=== PATIENT | female | born 1930 | race Caucasian/White ===

== ENCOUNTER 2017-09-01 19:39 | Outpatient (CLI) | payer MEDICARE, BC | END 2017-09-01 19:40 | disposition home or self-care (01) | LOC: EMS 19:39 | PROVIDERS: ATTEND Surgery | DX: M25.552 Pain in left hip (principal); W18.39XA Other fall on same level, initial encounter; Y92.009 Unspecified place in unspecified non-institutional (private) residence as the place of occurrence of the external cause | CPT/HCPCS: A0425; A0427 ==

== ENCOUNTER 2017-09-01 19:55 | Emergency (ER) | payer MEDICARE, BC ==
--- NOTE | 2017-09-01 20:07 | ED Physician Documentation ---
PD HPI LOWER EXT INJURY - Stated complaint Stated Complaint: GLF/HIP PAIN - History obtained from History obtained from: Patient - History of Present Illness PD HPI LOW EXT INJURY LOCATION: Left, Hip, Knee Type of injury: Fall Where injury occurred: Home Timing - onset: How many hours ago (1) Timing - duration: Hours Timing - details: Abrupt onset Pain level max: 9 Pain level now: 8 Improved by: Rest Worsened by: Moving, Palpating Associated symptoms: Swelling. No: Weakness, Numbness Similar symptoms before: Diagnosis (feels similar to h/o hip dislocation) Recently seen: Not recently seen - Additional information Additional information: lost balance while walking in her house approximately one hour [employer], causing her to fall. She had sudden onset left hip and left knee pain, unable to move the LLE due to pain. Given fentanyl en route with good pain relief Review of Systems Constitutional: reports: Reviewed and negative Eyes: reports: Reviewed and negative Ears: reports: Reviewed and negative Nose: reports: Reviewed and negative Throat: reports: Reviewed and negative Cardiac: reports: Reviewed and negative Respiratory: reports: Reviewed and negative GI: reports: Reviewed and negative : reports: Reviewed and negative Skin: reports: Reviewed and negative Musculoskeletal: reports: Extremity pain, Joint pain, Extremity swelling. 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 : None, Incontinence HEENT: None Psych: None Musculoskeletal: Osteoporosis, Scoliosis, Chronic back pain Derm: None - Past Surgical History General: Appendectomy, Gastric surgery, EGD Ortho: Hip replacement, Knee replacement, Rotator cuff repair, Shoulder arthroplasty, Arthroscopic surgery, Carpal Tunnel surgery, Spine surgery HEENT: Cataracts, Tonsil/Adenoidectomy - Present Medications Home Medications: Ambulatory Orders Medication Instructions Recorded Confirmed Bromelains/Melatonin/Herb #233 1 tab PO QPM 12/17/14 02/23/15 [Midnite Pm Chewable Tablet] Naproxen Sod/Diphenhydram HCl 200 mg PO ACHS PRN 02/20/15 02/23/15 [Aleve Pm Caplet] Omeprazole 20 mg PO DAILY 02/23/15 02/23/15 - Allergies Allergies/Adverse Reactions: Allergies Allergy/AdvReac Type Severity Reaction Status Date / Time morphine AdvReac Nausea Verified 09/01/17 20:08 - Social History Does the pt smoke?: No Smoking Status: Never smoker Does the pt drink ETOH?: No Does the pt have substance abuse?: No - Immunizations Immunizations are current?: Yes - POLST Patient has POLST: No PD ED PE NORMAL - Vitals Vital signs reviewed: Yes - General General: Alert and oriented X 3, No acute distress (NAD at rest but obvious painful distress with movement of LLE), Well developed/nourished - HEENT HEENT: PERRL, EOMI, Moist mucous membranes - Neck Neck: Supple, no meningeal sign - Cardiac Cardiac: RRR, No murmur - Respiratory Respiratory: No respiratory distress, Clear bilaterally - Abdomen Abdomen: Soft, Non tender - Back Back: No spinal TTP - Extremities Extremities: No edema - Neuro Neuro: Alert and oriented X 3, assurance services manager health care 2-12 intact, No motor deficit, No sensory deficit, Normal speech Eye Opening: Spontaneous Motor: Obeys Commands Verbal: Oriented GCS Score: 15 PD ED PE EXPANDED - Extremities Extremities: Deformity, Tenderness, Limited ROM, Left knee, Pedal Pulses Present , Sensory intact, Vascular intact Results - Vitals Vitals: Oxygen O2 Source Room air - Labs Labs: Laboratory Tests 09/01/17 09/01/17 21:03 21:03 WBC 8.1 RBC 3.19 L Hgb 9.9 L Hct 29.9 L MCV 93.7 MCH 30.9 MCHC 33.0 RDW 14.0 Plt Count 305 MPV 7.5 L Neut # Not Reportable Lymph # Not Reportable [place] # Not Reportable Eos # Not Reportable Baso # Not Reportable Absolute Nucleated RBC Not Reportable Total Counted 100 Band Neuts % (Manual) 3 Reactive Lymphs % (Man) 1 Abnorm Lymph % (Manual) 0 Nucleated RBC % Not Reportable Neutrophils # (Manual) 6.3 Lymphocytes # (Manual) 1.5 Monocytes # (Manual) 0.3 Eosinophils # (Manual) 0.0 Basophils # (Manual) 0.0 Nucleated RBCs 1 Differential Comment MANUAL DIFFERENTIAL Platelet Estimate NORMAL (130-450,000) Platelet Morphology NORMAL APPEARANCE RBC Morph Micro Appear NORMAL APPEARANCE Sodium 133 L Potassium 3.7 Chloride 100 L Carbon Dioxide 24 Anion Gap 9.0 BUN 20 Creatinine 1.3 H Estimated GFR (MDRD) 39 L Glucose 126 H Calcium 8.9 - Rads (name of study) left hip xrays Radiology: Prelim report reviewed, See rad report left knee xrays Radiology: Prelim report reviewed, See rad report Procedures - Splint (location) Lower extremity left Splint applied by: Tech (splint placed by tech; I was in room during procedure and aplied gentle, steady in-line traction to the LLE during the procedure with improved alignment (decrease in deformity of left knee) immediately prior to application of the splint) Type of splint: Long leg, Posterior Other: Patient tolerated well, No complications, Neurovascular intact, Good alignment PD MEDICAL DECISION MAKING - ED course Complexity details: reviewed results, re-evaluated patient, considered differential, d/w patient ED course: D/W Dr. Borja (on-call orthopedic surgeon), who recommends transfer to [facility] due to the complexity of the fracture. D/W Dr. Parks at [facility], accepts transfer to [facility]. Departure - Departure Disposition: 02 Transfer Acute Care Hosp Clinical Impression: Knee fracture, left Condition: Stable Discharge Date/Time: 09/02/17 01:28
[2017-09-01] MEDS ORDERED: HYDROmorphone 1 MG/ML CARPUJECT IVP STA (20:47)
--- NOTE | 2017-09-01 21:04 | XRAY Report ---
EXAM: LEFT KNEE RADIOGRAPHY EXAM DATE: 09/01/2017 08:50 PM. CLINICAL HISTORY: Fall, pain. COMPARISON: None. TECHNIQUE: 2 views. FINDINGS: Bones: There is a comminuted displaced fracture of the inferior femur. The fracture extends across th e inferior diaphysis metaphysis junction. The distal fragment is displaced posteriorly by 6 cm. Joints: There is chronic degenerative disease of knee with chondrocalcinosis and joint space narrowin g. Soft Tissues: There is soft tissue swelling and deformity. IMPRESSION: Comminuted displaced fracture of inferior femur. [facility] Referring Provider Line: [phone] SITE ID: [id number]
[2017-09-01 21:09] LABS: HGB - HEMOGLOBIN 9.9 g/dL (12.0-16.0); MEAN CORPUSCULAR VOLUME 93.7 fL (81.0-99.0)
--- NOTE | 2017-09-01 21:09 | XRAY Preliminary Report ---
Exam: XR HIP W/PELVIS 2-3V LT IMPRESSION: No acute fracture or dislocation [facility] SITE ID: [id number]
--- NOTE | 2017-09-01 21:09 | XRAY Report ---
EXAM: LEFT HIP AND PELVIS RADIOGRAPHY EXAM DATE: 09/01/2017 08:50 PM. HISTORY: Fall, pain. COMPARISONS: 03/18/2015. TECHNIQUE: 1 view of the pelvis and 1 view of the hip. FINDINGS: Bones: There is a new right hip arthroplasty prosthesis. The hardware appears intact. There is genera lized demineralization. Again demonstrated is a bipolar left hip prosthesis. The left hip hardware appears intact and in sati sfactory alignment. No fracture. Joints: No dislocation. Soft Tissues: Normal. No soft tissue swelling. IMPRESSION: No acute fracture or dislocation [facility] Referring Provider Line: [phone] SITE ID: [id number]
[2017-09-01 21:14] LABS: BASOPHILS % (AUTO) 1.1 %; EOSINOPHILS % (AUTO) 1.3 %; LYMPHOCYTES % (AUTO) 6.7 %; MEAN CORPUSCULAR HEMOGLOBIN 30.9 pg (27.0-31.0); MEAN PLATELET VOLUME 7.5 fL (7.9-10.8); MONOCYTES % (AUTO) 4.3 %; NEUTROPHILS % (AUTO) 86.6 %; PLT - PLATELET COUNT 305 10^3/uL (130-450); RED BLOOD COUNT 3.19 10^6/uL (4.20-5.40); WHITE BLOOD COUNT 8.1 x10^3/uL (4.8-10.8)
[2017-09-01 21:18] LABS: CALCIUM 8.9 mg/dL (8.5-10.3); CREATININE 1.3 mg/dL (0.4-1.0)
[2017-09-01 21:19] LABS: ABNORMAL LYMPHS % (MANUAL) 0 %
[2017-09-01] MEDS ORDERED: fentaNYL 100 MCG/2 ML VIAL IVP STA ×2 (21:47→23:51)
[2017-09-01 22:08] LABS: BAND NEUTROPHILS % (MANUAL) 3 %; DIFFERENTIAL COMMENT MANUAL DIFFERENTIAL; LYMPHOCYTES # (MANUAL) 1.5 10^3/uL (1.5-3.5); LYMPHOCYTES % (MANUAL) 17 %; MONOCYTES # (MANUAL) 0.3 10^3/uL (0.0-1.0); NEUTROPHILS # (MANUAL) 6.3 10^3/uL (1.5-6.6); NEUTROPHILS % (MANUAL) 75 %; PLATELET ESTIMATE, MANUAL NORMAL (130-450,000) (NORMAL); PLATELET MORPHOLOGY NORMAL APPEARANCE (NORMAL); RBC MORPHOLOGY (MULTIPLE) NORMAL APPEARANCE (NORMAL)
[2017-09-02 00:45] VITALS: BP 129/76
== END 2017-09-02 01:28 | disposition short-term general hospital (02) ==
LOC: EDUNIT# → ED 19:55
DX: S72.8X2A Other fracture of left femur, initial encounter for closed fracture (principal); W18.30XA Fall on same level, unspecified, initial encounter; Y93.01 Activity, walking, marching and hiking; Y92.009 Unspecified place in unspecified non-institutional (private) residence as the place of occurrence of the external cause; Z96.649 Presence of unspecified artificial hip joint; Z96.659 Presence of unspecified artificial knee joint
CPT/HCPCS: 29505; 36415; 73502; 73560; 80048; 85025; 96374; 96375; 96376; 99284; 99285; J1170